=== PATIENT | female | born 1935 | race Two or more races ===

== ENCOUNTER 2019-01-22 11:51 | Outpatient (CLI) | payer MEDICARE, OTHER ==
[2019-01-22 12:26] LABS: ABG BASE EXCESS 0.5 mmol/L; ABG OXYGEN SATURATION 92.6 % (92.0-98.5); ABG PCO2 41.3 mmHg (35.0-45.0); ABG PH 7.405 (7.350-7.450); ABG PO2 69.7 mmHg (75.0-100.0); AaDO2 30.6 mmHg; COHb 0.4 % (0.5-1.5); MetHb 0.4 % (0.0-1.5); O2Hb 91.9 % (94.0-97.0); SITE, ABG Right Radial; VENT MODE, BG ROOM AIR
== END 2019-01-22 23:59 | disposition home or self-care (01) ==
LOC: RT 11:51
PROVIDERS: ATTEND Internal Medicine Pulmonary Disease
DX: R06.02 Shortness of breath (principal)
CPT/HCPCS: 36600